=== PATIENT | female | born 1995 | race Caucasian/White ===

== ENCOUNTER 2016-11-15 05:39 | Emergency (ER) | payer MEDICAID ==
[~2016-11-15] VITALS: Ht 154.9 cm; Wt 69.5 kg
[~2016-11-15 05:39] MED LIST: ALPR0.5T PO; CODE118S PO; CYCL-319 PO; HYDR-906 PO; IBUP-1542 PO
[2016-11-15 05:45] VITALS: Ht 154.9 cm; Wt 69.5 kg
[2016-11-15] MEDS ORDERED: SOD CHLORIDE 0.9% 1,000 ML IV STA (06:07)
[2016-11-15] MEDS ORDERED: LORAZEPAM 2 MG INJ IV ONE (06:30)
[2016-11-15 06:51] LABS: ADD SCAN DIFF NO
[2016-11-15 06:59] LABS: BASOPHIL # 0.1 10^3/ul (0.0-0.1); BASOPHILS % 0.6 % (0.0-2.0); EOSINOPHILS # 0.3 10^3/ul (0.0-0.5); EOSINOPHILS % 3.3 % (0.0-7.0); HEMATOCRIT 40.1 % (37.0-47.0); HEMOGLOBIN 13.1 g/dl (12.0-16.0); LYMPHOCYTES # 3.6 10^3/ul (0.8-2.9); LYMPHOCYTES % 34.3 % (15.0-51.0); MEAN CORPUSCULAR HEMOGLOBIN 29.1 pg (29.0-33.0); MEAN CORPUSCULAR HGB CONC 32.7 g/dl (32.0-37.0); MEAN CORPUSCULAR VOLUME 89.1 fl (82.0-101.0); MEAN PLATELET VOLUME 9.8 fl (7.4-10.4); MONOCYTE # 0.7 10^3/ul (0.3-0.9); MONOCYTES % 6.4 % (0.0-11.0); NEUTROPHIL # 5.7 10^3/ul (1.6-7.5); NEUTROPHILS % 55.1 % (39.0-77.0); PLATELET COUNT 366 10^3/UL (140-415); RED CELL DISTRIBUTION WIDTH 13.2 % (11.5-14.5); WHITE BLOOD COUNT 10.3 10^3/ul (4.8-10.8)
[2016-11-15 07:05] LABS: ADD UMIC YES; URINE BILIRUBIN (Dip) NEGATIVE (NEGATIVE); URINE BLOOD (Dip) TRACE (NEGATIVE); URINE COLOR LT. YELLOW (YELLOW); URINE GLUCOSE (Dip) NEGATIVE (NEGATIVE); URINE KETONES (Dip) NEGATIVE (NEGATIVE); URINE LEUKOCYTE ESTERASE (Dip) 1+ (NEGATIVE); URINE NITRITE (Dip) NEGATIVE (NEGATIVE); URINE TOTAL PROTEIN (Dip) NEGATIVE (NEGATIVE); URINE UROBILINOGEN (Dip) 0.2 E.U./dL (0.1-1.0)
[2016-11-15 07:07] LABS: ALBUMIN 4.3 g/dl (3.3-4.9)
[2016-11-15 07:08] LABS: CHLORIDE 104 mmol/L (97-110); POTASSIUM 3.6 mmol/L (3.5-5.1); SODIUM 144 mmol/L (135-144)
[2016-11-15 07:10] LABS: ANION GAP 17 (8-16); BILIRUBIN,INDIRECT 0.3 mg/dl (0-1.1); BILIRUBIN,TOTAL 0.3 mg/dl (0.2-1.3); CARBON DIOXIDE 27 mmol/L (21-31); CREATININE 0.63 mg/dl (0.44-1.00)
[2016-11-15 07:11] LABS: ALANINE AMINOTRANSFERASE 19 IU/L (13-69); ALBUMIN/GLOBULIN RATIO 1.26; ALKALINE PHOSPHATASE 79 IU/L (42-121); ASPARTATE AMINO TRANSFERASE 17 IU/L (15-46); BLOOD UREA NITROGEN 6 mg/dl (7-20); CALCIUM 9.1 mg/dl (8.4-10.2); GLUCOSE 72 mg/dl (70-220); TOTAL PROTEIN 7.7 g/dl (6.1-8.1)
[2016-11-15 07:23] LABS: BACTERIA,URINE FEW; URINE RBCS 0-2 /HPF (0)
[2016-11-15 07:27] LABS: TROPONIN-I < 0.012 ng/ml (0.00-0.12)
[2016-11-15 07:40] VITALS: BP 113/94; PULSE 86; RESP 20; TEMP 98.3
--- NOTE | 2016-11-15 07:43 | ERD ---
ER Documentation Chief Complaint Date/Time DATE: 11/15/16 TIME: 07:36 Chief Complaint TOOK PLAN B LAST NIGHT. DID COCAINE ONE HR AGO W/ PHENERGAN W/ CODEINE HPI 21-year-old woman here for evaluation after using cocaine last night and 1 dose of levonorgestrel. She also used Phenergan with codeine suspension. She denies suicidal homicidal ideation, no fevers or chills, no vomiting or diarrhea , no headache or blurry vision. ROS All systems reviewed and are negative except as per history of present illness. Medications Home Meds Active Scripts Ibuprofen* (Motrin*) 600 Mg Tab, 600 MG PO Q6H Y for PAIN AND OR ELEVATED TEMP, #30 TAB Prov:LISA BAILEY [employer]CRAFT ORDNANCE TECHNICIAN 06/03/16 Cyclobenzaprine Hcl* (Cyclobenzaprine Hcl*) 10 Mg Tablet, 10 MG PO TID, #30 TAB Prov:LISA BAILEY [employer] ORDNANCE TECHNICIAN 06/03/16 Hydrocodone/Acetaminophen ([place] 5-325 Tablet) 1 Each Tablet, 1 TAB PO Q6H Y for PAIN, #10 TAB Prov:LISA BAILEY [employer]CRA[employer] ORDNANCE TECHNICIAN 06/03/16 Reported Medications Promethazine w/Codeine (Phenergan w/Codeine Syrup) 120 Ml Syrup, 5 ML PO Q8 Y for COUGH, #240 12/01/15 Alprazolam* (Xanax*) 0.5 Mg Tab, PO, TAB 04/05/14 Allergies Allergies: Coded Allergies: No Known Allergy (Unverified , 08/25/15) PMhx/Soc Chronic drug abuse History of Surgery: No Anesthesia Reaction: No Hx Neurological Disorder: No Hx Respiratory Disorders: No Hx Cardiac Disorders: No Hx Psychiatric Problems: No Hx Miscellaneous Medical Probl: Yes (Etoh Use) Hx Alcohol Use: No Hx Substance Use: No Hx Tobacco Use: No Smoking Status: Never smoker FmHx Family History: No diabetes Physical Exam Vitals Vital Signs Date Time Temp Pulse Resp B/P Pulse Ox O2 Delivery O2 Flow Rate FiO2 11/15/16 07:00 98.3 83 20 106/75 98 Room Air 11/15/16 05:45 98.0 102 22 125/77 99 Physical Exam GENERAL: Well-developed, well-nourished, anxious HEENT: Moist mucous membranes, pink conjunctiva, no cervical spine tenderness or step-off deformities, no goiter, no jaundice or icterus, extraocular movements intact without pain. No submandibular induration, and no pharyngeal erythema NEURO: Alert and oriented 3, cranial nerves II through XII intact bilaterally, pupils equal round reactive to light, no focal deficits or facial asymmetry, sensation intact distally Strength 5/5 in upper and lower extremities bilaterally CARDIAC: Regular rate and rhythm, no murmurs rubs or gallops LUNGS: Clear bilaterally no wheezing crackles or stridor ABDOMEN: Soft nontender, no guarding, no rigidity, no rebound, no psoas sign no obturator sign. Normoactive bowel sounds SKIN: Warm and dry to touch, no abrasions, contusions, or hematomas, no lacerations, no ecchymosis, no target lesions, and without ulcers EXTREMITIES: No clubbing cyanosis or edema, calves are bilaterally symmetrical, no Homans sign, no popliteal cord sign. Distal pulses equal and bilateral PSYCH: Anxious Result Diagram: 11/15/16 0645 11/15/16 0645 Results 24 hrs Laboratory Tests Test 11/15/16 06:45 Alanine Aminotransferase (ALT/SGPT) 19IU/L Albumin 4.3g/dl Albumin/Globulin Ratio 1.26 Alkaline Phosphatase 79IU/L Anion Gap 17 Aspartate Amino Transf (AST/SGOT) 17IU/L Basophils # 0.110^3/ul Basophils % 0.6% Blood Urea Nitrogen 6mg/dl Calcium Level 9.1mg/dl Carbon Dioxide Level 27mmol/L Chloride Level 104mmol/L Creatinine 0.63mg/dl Direct Bilirubin 0.00mg/dl Eosinophils # 0.310^3/ul Eosinophils % 3.3% Globulin 3.40g/dl Glucose Level 72mg/dl Hematocrit 40.1% Hemoglobin 13.1g/dl Indirect Bilirubin 0.3mg/dl Lipase 75U/L Lymphocytes # 3.610^3/ul Lymphocytes % 34.3% Mean Corpuscular Hemoglobin 29.1pg Mean Corpuscular Hemoglobin Concent 32.7g/dl Mean Corpuscular Volume 89.1fl Mean Platelet Volume 9.8fl Monocytes # 0.710^3/ul Monocytes % 6.4% Neutrophils # 5.710^3/ul Neutrophils % 55.1% Nucleated Red Blood Cells # 0.010^3/ul Nucleated Red Blood Cells % 0.0/100WBC Platelet Count 09546^3/UL Potassium Level 3.6mmol/L Red Blood Count 4.5010^6/ul Red Cell Distribution Width 13.2% Sodium Level 144mmol/L Total Bilirubin 0.3mg/dl Total Protein 7.7g/dl Troponin I < 0.012ng/ml Urine Bacteria FEW Urine Bilirubin NEGATIVE Urine Clarity CLEAR Urine Color LT. YELLOW Urine Epithelial Cells FEW Urine Glucose NEGATIVE% Urine Hemoglobin TRACE Urine Ketones NEGATIVE Urine Leukocyte Esterase 1+ Urine Microscopic RBC 0-2/HPF Urine Microscopic WBC 0-2/HPF Urine Nitrite NEGATIVE Urine Specific [place] <=1.005 Urine Total Protein NEGATIVE Urine Urobilinogen 0.2 E.U./dL Urine pH 6.0 White Blood Count 10.310^3/ul Current Medications Medications (Trade) Dose Ordered Sig/Jaren Route PRN Reason Start Time Stop Time Status Last Admin Dose Admin Sodium Chloride (NS) 1,000 ml @ 1,000 mls/hr Q1H STAT IV 11/15/16 06:07 11/15/16 07:06 DC 11/15/16 06:51 Lorazepam (Ativan) 0.5 mg ONCE ONCE IV 11/15/16 06:30 11/15/16 06:31 DC 11/15/16 06:53 Procedures/MDM IV line was established patient was placed on monitor technician rhythm strip revealed a sinus rhythm at about 90 bpm with upright P and T waves. Patient was afebrile. I administered 1 L normal saline intravenously and lorazepam 0.5 mg IV 1 for her symptoms with good response. EKG performed, read by me: 91 bpm, normal sinus rhythm, normal axis, no acute ST segment changes, narrow QRS complex, with good R-wave progression in precordial leads. CBC and electrolytes were unremarkable, liver function tests are normal, troponin was negative. test was negative and urine analysis was negative for infection. Differential diagnoses considered, included but not limited to acute coronary syndrome, pulmonary embolism, aortic dissection, abdominal aortic aneurysm, sepsis, stroke, meningitis, encephalitis, pneumonia, appendicitis, cholecystitis , bowel obstruction, pyelonephritis, nephrolithiasis, cystitis, as well as metabolic, hematologic, and electrolyte abnormalities. As well as abscess, cellulitis, fractures, and dislocations. Patient feels much better at this time, and vital signs are normal, symptoms have improved. I did give strict instructions to return to the ED if symptoms continue or worsen, patient will otherwise follow-up with primary care physician. Patient understood instructions and agreed to plan. Departure Diagnosis: Primary Impression: Cocaine abuse Condition: Good Patient Instructions: Cocaine And Crack Abuse ONEYDA CALDERÓN MD Nov 15, 2016 07:42
== END 2016-11-15 07:50 | disposition home or self-care (01) ==
LOC: E/R 05:39
DX: F14.129 Cocaine abuse with intoxication, unspecified (principal); R40.2142 Coma scale, eyes open, spontaneous, at arrival to emergency department; R40.2252 Coma scale, best verbal response, oriented, at arrival to emergency department; R40.2362 Coma scale, best motor response, obeys commands, at arrival to emergency department
CPT/HCPCS: 36415; 80053; 81001; 83690; 84484; 85025; 93005; 96374; J2060; J7030; Z7502; 81003

== ENCOUNTER 2019-03-08 18:20 | Emergency (ER) | payer MEDICAID ==
[~2019-03-08] VITALS: Ht 154.9 cm; Wt 59.8 kg
[~2019-03-08 18:20] MED LIST changes: -CYCL-319 PO; +CYCL10TA7 PO; +HYDR-4011 PO; -HYDR-906 PO
[2019-03-08 18:32] VITALS: BP 136/81; PULSE 83; RESP 16; Ht 154.9 cm; Wt 59.8 kg
[2019-03-08] MEDS ORDERED: ACETAMINOPHEN 500 MG TAB PO STA (18:43)
[2019-03-08] MEDS ORDERED: ONDANSETRON (ODT) 4 MG TAB ODT STA (18:43)
--- NOTE | 2019-03-08 19:16 | ERD ---
ER Documentation Chief Complaint Chief Complaint PT reports urinating blood today and pain x 2 days HPI 23-year-old female presents with an episode of blood in the urine today. She denies dysuria patient also has mild suprapubic and left pelvic pain for the last day. Denies fevers, vomiting, flank pain. She denies right-sided abdominal pain. She denies upper abdominal pain. Patient's last menstrual period was approximately 1 week ago and denies although is not completely certain. ROS All systems reviewed and are negative except as per history of present illness. Medications Home Meds Active Scripts Ibuprofen* (Motrin*) 600 Mg Tab, 600 MG PO Q6H PRN for PAIN AND OR ELEVATED TEMP, #30 TAB Prov:LISA BAILEY [employer] EDUCATION INCLUSION TEACHER 06/03/16 Cyclobenzaprine Hcl* (Cyclobenzaprine Hcl*) 10 Mg Tablet, 10 MG PO TID, #30 TAB Prov:LISA BAILEY [employer] EDUC[employer] INCLUSION TEACHER 06/03/16 Hydrocodone/Acetaminophen ([place] 5-325 Tablet) 1 Each Tablet, 1 TAB PO Q6H PRN for PAIN, #10 TAB Prov:LISA BAILEY [employer] EDUCATION INCLUSION TEACHER 06/03/16 Reported Medications Promethazine w/Codeine (Phenergan w/Codeine Syrup) 120 Ml Syrup, 5 ML PO Q8 PRN for COUGH, #240 12/01/15 Alprazolam* (Xanax*) 0.5 Mg Tab, PO, TAB 04/05/14 Allergies Allergies: Coded Allergies: No Known Allergy (Unverified , 08/25/15) PMhx/Soc Medical and Surgical Hx: pt denies Medical Hx, pt denies Surgical Hx History of Surgery: No Anesthesia Reaction: No Hx Neurological Disorder: No Hx Respiratory Disorders: No Hx Cardiac Disorders: No Hx Psychiatric Problems: No Hx Miscellaneous Medical Probl: Yes (Etoh Use) Hx Alcohol Use: No Hx Substance Use: No Hx Tobacco Use: No Smoking Status: Current every day smoker FmHx Family History: No diabetes, No coronary disease, No other Physical Exam Vitals Vital Signs Date Temp Pulse Resp B/P (MAP) Pulse Ox O2 O2 Flow FiO2 Time Delivery Rate 03/08/19 98.1 83 16 136/81 96 18:32 (99) Physical Exam Const: No acute distress Head: Atraumatic Eyes: Normal Conjunctiva ENT: Normal External Ears, Nose and Mouth. Neck: Full range of motion. No meningismus. Resp: Clear to auscultation bilaterally Cardio: Regular rate and rhythm, no murmurs Abd: Soft, patient points to the left lower abdomen there is a area of pain but is nontender. She has no tenderness at McBurney's point no Jefferson sign. No CVA tenderness. Non distended. Normal bowel sounds Skin: No petechiae or rashes Back: No midline or flank tenderness Ext: No cyanosis, or edema Neur: Awake and alert Psych: Normal Mood and Affect Results 24 hrs Laboratory Tests Test 03/08/19 18:49 03/08/19 18:51 POC Beta HCG, Qualitative NEGATIVE Bedside Urine pH (LAB) 8.5 Bedside Urine Protein (LAB) Negative Bedside Urine Glucose (UA) Negative Bedside Urine Ketones (LAB) Negative Bedside Urine Blood Negative Bedside Urine Nitrite (LAB) Negative Bedside Urine Leukocyte Esterase (L Negative Current Medications Medications Dose Sig/Jaren Start Time Status Last (Trade) Ordered Route PRN Stop Time Admin Dose Reason Admin Ondansetron 8 mg ONCE STAT 03/08/19 DC 03/08/19 HCl (Zofran ODT 18:43 03/08/19 18:48 Odt) 18:45 500 mg ONCE STAT 03/08/19 DC 03/08/19 Acetaminophen PO 18:43 03/08/19 18:48 (Tylenol 18:45 Tab) Procedures/MDM hCG negative and urine negative. Patient has a benign reassuring exam on serial exam. She is nontender. She has no tenderness at McBurney's point no signs of significant abdominal pain or tenderness. Patient does not exhibit signs or symptoms suggest ovarian torsion, tubo-ovarian abscess. Patient was offered or recommended to have pelvic ultrasound possibly limited to renal ultrasound for hematuria of uncertain etiology. Patient declined. She states that she will continue Tylenol at home and recheck if symptoms recur or worsen. She was advised to return for fevers, vomiting, worsening abdominal pain, new worsening symptoms. Doubt ovarian torsion. Doubt PID or tubo-ovarian abscess. Doubt appendicitis. The patient was stable with no new complaints during the ER course. Clinically, there is no current evidence to suggest meningitis, sepsis, acute abdomen, pneumonia, stroke, acute coronary syndrome, pulmonary embolism, aortic dissection or any other emergent condition appearing to require further evaluation or hospitalization. Patient counseled regarding my diagnostic impression and care plan. Prior to discharge all questions answered. Pt agrees with treatment plan and understands strict return precautions. Pt is instructed to follow up with primary care provider within 24-48 hours. Precautionary instructions provided including instructions to return to the ER if not improving or for any worsening or changing symptoms or concerns. Disclaimer: Inadvertent spelling and grammatical errors are likely due to EHR/dictation software use and do not reflect on the overall quality of patient care. Also, please note that the electronic time recorded on this note does not necessarily reflect the actual time of the patient encounter. Departure Diagnosis: Primary Impression: Pelvic pain Additional Impression: Hematuria Hematuria type: unspecified type Qualified Codes: R31.9 - Hematuria, unspecified Condition: Stable Patient Instructions: Hematuria, Refusal Of Further Treatment Additional Instructions: Urine normal today as well as test. Uncertain cause of pain. You have declined further testing. Recheck for worsening pain, fevers, new or worsening symptoms. Okay to take Tylenol or ibuprofen at home for pain. JAYLAN SALINAS MD Mar 08, 2019 19:16
== END 2019-03-08 19:17 | disposition home or self-care (01) ==
LOC: FTE 18:20
DX: R10.2 Pelvic and perineal pain (principal); F17.210 Nicotine dependence, cigarettes, uncomplicated; R31.9 Hematuria, unspecified
CPT/HCPCS: 81003; 81025; Z7502; Z7610; 99283

== ENCOUNTER 2019-03-14 22:41 | Emergency (ER) | payer SELFPAY ==
[~2019-03-14] VITALS: Ht 157.5 cm; Wt 59.8 kg
[2019-03-14 23:01] VITALS: BP 121/63; PULSE 75; RESP 18; Ht 157.5 cm; Wt 59.8 kg
== END 2019-03-15 01:50 | disposition left against medical advice (07) ==
LOC: FTE 22:41
DX: Z53.21 Procedure and treatment not carried out due to patient leaving prior to being seen by health care provider (principal)